=== PATIENT | female | born 1970 | race African-American/Black ===

== ENCOUNTER 2016-04-20 15:23 | Emergency (ER) | payer OTHER ==
[2016-04-20] MEDS ORDERED: METHYLPRED SOD SUCC 125 MG/2 ML VIAL ONE (15:44)
[2016-04-20] MEDS ORDERED: NEB-ALBUTEROL 2.5 MG/3 ML INH ONE ×2 (16:23)
== END 2016-04-20 18:28 | disposition home or self-care (01) ==
LOC: ER 15:23
DX: J45.901 Unspecified asthma with (acute) exacerbation (principal)
CPT/HCPCS: 71010; 94640; 96374; 99283; J2930